=== PATIENT | male | born 1970 | race Caucasian/White ===

== ENCOUNTER 2017-07-16 15:58 | Emergency (ER) | payer BC, OTHER ==
[2017-07-16 17:13] VITALS: BP 134/91
--- NOTE | 2017-07-16 17:37 | UC ---
Knee Pain HPI - HPI Summary HPI Summary: PLANTED RIGHT FOOT AND THEN TWISTED RIGHT KNEE. RIGHT KNEE ALSO STRUCK STEEL POLE ON THE WAY DOWN. PT HAS PAIN WITH BENDING AND WEIGHT BEARING. - History of Current Complaint Chief Complaint: UCLowerExtremity Stated Complaint: RIGHT KNEE INJURY Time Seen by Provider: 07/16/17 17:23 Hx Obtained From: Patient Onset/Duration: Sudden Onset, Lasting Hours, Still Present Severity Initially: Moderate Severity Currently: Moderate Pain Intensity: 7 Pain Scale Used: 0-10 Numeric Character: Sharp Aggravating Factor(s): Movement, Weight Bearing Alleviating Factor(s): Rest Associated Signs And Symptoms: Positive: Swelling, Bruising Able to Bear Weight: Yes - Allergies/Home Medications Allergies/Adverse Reactions: Allergies Allergy/AdvReac Type Severity Reaction Status Date / Time Amoxicillin Allergy Swelling Verified 07/16/17 17:12 Of Face,Lips,& Throat PMH/Surg Hx/FS Hx/Imm Hx Previously Healthy: Yes Other History Of: Negative For: HIV, Hepatitis B, Hepatitis C, Anticoagulant Therapy - Surgical History Surgical History: Yes Surgery Procedure, Year, and Place: HERNIA REPAIR - Family History Known Family History: Negative: Cardiac Disease, Hypertension, Diabetes, Respiratory Disease - Social History Alcohol Use: Weekly Substance Use Type: None Smoking Status (MU): Never Smoked Tobacco Review of Systems Constitutional: Negative Skin: Bruising Respiratory: Negative Cardiovascular: Negative Gastrointestinal: Negative Musculoskeletal: Arthralgia, Decreased ROM All Other Systems Reviewed And Are Negative: Yes Physical Exam Triage Information Reviewed: Yes Appearance: Well-Appearing, No Pain Distress, Well-Nourished Vital Signs: Initial Vital Signs Temp 98.1 F 07/16/17 17:09 Pulse 75 07/16/17 17:09 Resp 16 07/16/17 17:09 BP 134/91 07/16/17 17:09 Pulse Ox 95 07/16/17 17:09 Vital Signs Reviewed: Yes Eyes: Positive: Conjunctiva Clear ENT: Positive: Hearing grossly normal Neck: Positive: Supple Respiratory: Positive: No respiratory distress, No accessory muscle use Cardiovascular: Positive: Pulses Normal Abdomen Description: Positive: Soft Musculoskeletal: Positive: ROM Limited @ - RIGHT KNEE, Edema @ - RIGHT KNEE, Other: - RIGHT KNEE: NO JOINT LINE TENDERNESS OR TENDERNESS OVER ANY BONY PROMINENCES. NEG DRAWERS SIGNS. NEG PATELLAR APPREHENSION TEST. NO TENDERNESS OVER PATELLAR LIGAMENT OR QUADRICEPS TENDON. DECREASED ROM (FLEXION). UNABLE TO DO FULL KNEE EXAM DUE TO PT DISCOMFORT Neurological: Positive: Alert Psychological: Positive: Age Appropriate Behavior Skin: Positive: Other - BRUISE DISTAL TO RIGHT KNEE. Negative: rashes Diagnostics - Radiology RIGHT KNEE XRAY Xray Interpretation: Positive (See Comments) - Small joint effusion without additional radiographic finding. Radiology Interpretation Completed By: Radiologist Knee Pain Course/Dx - Differential Dx/Diagnosis Differential Diagnosis/HQI/PQRI: Bursitis, Sprain, Strain Provider Diagnoses: RIGHT KNEE SUSPECTED INTERNAL INJURY Discharge - Discharge Plan Condition: Stable Disposition: HOME Patient Education Materials: Knee Pain (ED) Forms: *Work Release Referrals: Juan A Otero MD [Medical Doctor] - 1 Week Kam Bond DO [Primary Care Provider] - If Needed Additional Instructions: YOU MAY HAVE SPRAINED YOUR KNEE VS DONE SOME INTERNAL DAMAGE. YOUR XRAY SHOWS AN EFFUSION BUT IS OTHERWISE UNREMARKABLE. WEAR THE KNEE IMMOBILIZER FOR COMFORT. AFTER 2-3 DAYS BE SURE TO GO THROUGH SLOW RANGE OF MOTION AND STRETCHING EXERCISES YOU ARE ABLE TO PREVENT STIFFENING UP AND MAKING THE DISCOMFORT WORSE. REST, ICE, ELEVATE. IF YOU DO NOT NOTICE IMPROVEMENT OVER THE NEXT SEVERAL DAYS WOULD FOLLOW-UP WITH YOUR PCP OR ORTHO YOU MAY BENEFIT FROM FURTHER IMAGING. SUSPECTED INTERNAL KNEE INJURY: The examiner of your injured knee suspects an internal injury to the cartilage or internal ligaments. This must be further investigated by an client technologies specialist. The knee should be protected, ice packed, and elevated while awaiting your follow-up exam by the orthopedist. If there is severe swelling, severe pain, or any new symptoms while awaiting your exam, you should call the orthopedist. (If he/she is unavailable, call us or return for re-examination.)
--- NOTE | 2017-07-16 18:00 | RAD ---
Indication: Posterior RIGHT knee pain following twisting fall yesterday. Comparison: None. Technique: RIGHT knee: AP, tunnel, lateral, sunrise views. Report: Small joint effusion. Negative for fracture or malalignment. Preserved joint spaces. Unremarkable soft tissue contours. IMPRESSION: Small joint effusion without additional radiographic finding.
== END 2017-07-16 18:37 | disposition home or self-care (01) ==
LOC: UCCORT 15:58
DX: M25.461 Effusion, right knee (principal); Z88.0 Allergy status to penicillin
CPT/HCPCS: 99213; G0463

== ENCOUNTER → 2018-11-16 09:06 | Day surgery (SDC) | payer OTHER ==
--- NOTE | 2018-10-23 17:26 | HP ---
PREOPERATIVE HISTORY AND PHYSICAL: DATE OF ADMISSION/SURGERY: 11/16/18 [facility] DATE OF OFFICE VISIT: 10/23/18 ATTENDING SURGEON: Craig Barron MD * (DICTATED BY IRAM APODACA) PROCEDURE: Right knee arthroscopy with partial meniscectomy. CHIEF COMPLAINT: Right knee. HISTORY OF PRESENT ILLNESS: Seth is a 48-year-old male who presents to the clinic for right knee pain due to a meniscus tear. He has failed conservative measures and therefore agreed to undergo a right knee arthroscopy with partial meniscectomy with Dr. Barron on 11/16/18. PAST MEDICAL HISTORY: Denies current medical condition. PAST SURGICAL HISTORY: Hernia repair. The patient states that he has had prior complication with local MAC and requires general anesthesia. MEDICATIONS: 1. Advil 200 mg 1 by mouth as needed. 2. Pepcid 1 by mouth as needed. 3. Aleve 220 mg 1 to 2 by month twice a day as needed. ALLERGIES: No known drug allergies. FAMILY HISTORY: Denies pertinent family history. SOCIAL HISTORY: He lives alone. He works in railroad construction. He denies tobacco use. He reports occasional alcohol consumption. He is right-hand dominant . REVIEW OF SYSTEMS: A 14-point review of systems was reviewed with the patient. Positive for current complaint, otherwise negative. Denies fever, chills, chest pain, shortness of breath, history of DVT or PE, history of bleeding disorder. PHYSICAL EXAMINATION GENERAL: A 48-year-old well-developed, well-nourished male, in no acute distress. VITAL SIGNS: Height 71.25, weight 200, pulse 62, blood pressure 110/70, respiratory rate 18, temperature 98.0, BMI 27.8. HEENT: Normocephalic, atraumatic. PERRLA. Throat: Clear. NECK: Supple. PULMONARY: Lungs are clear to auscultation bilaterally. No wheezing, rhonchi, or rales. CARDIO: Regular rate and rhythm. S1, S2. No murmurs, gallops, or rubs. No edema. ABDOMEN: Positive bowel sounds, soft, nontender. NEURO: Alert and oriented x3. Cranial nerves grossly intact. MUSCULOSKELETAL: Right lower extremity, skin is intact. No warmth or erythema. Range of motion 0 to 135. Stable Vicky. +1 posterior drawer. Stable to varus and valgus stress. Tender over the lateral joint line. Pain with deep flexion. Positive Mellisa's. +2 DP pulse. Sensation intact to light touch distally. 5/5 strength to ankle dorsiflexion and plantar flexion. DIAGNOSTIC STUDIES: Multi-view x-rays and MRI of the right knee revealed a complete PCL tear. IMPRESSION: Right knee meniscus tear. PLAN: The patient is scheduled to undergo a right knee arthroscopy with partial meniscectomy with Dr. Barron on 11/16/18. He will follow up in 10 to 14 days postop for followup and suture removal. Percocet will be used for postop pain management. IRAM APODACA [id number]/CPS #: [id number] MTDD
[~2018-11-16 09:06] MED LIST: Buffered Lidocaine 0.9% SYRIN* 5 ML/SYR SYRINGE INTRADERM ONE; Clindamycin 900 MG/D5W BAG(*) 900 MG/50 ML BAG IVPB ONE; Dexamethasone IV* 4 MG/ML 1 ML (4 MG) IV SLOW PU ONE; Dexamethasone IV* 4 MG/ML 1 ML (4 MG) ONE; DiMENhydriNATE IV* 50 MG/ML VIAL IV PUSH PRN; Famotidine IV* 10 MG/ML 2 ML (20 mg) IV ONE; Famotidine IV* 10 MG/ML 2 ML (20 mg) ONE; HYDROmorphone INJ1* 1 MG/ML SYRINGE IV PRN; Ketorolac INJ* 30 MG/ML 1 ML VIAL ONE; Lactated Ringers 1000 ML Bag* 1,000 ML IV SCH; Lidocain 1% EPI 1:100,000 * 30 ML MDV ONE; Lidocaine 2% PF * 5 ML VIAL ONE; Midazolam* 1 MG/ML 5 ML VIAL (5 MG) ONE; Naloxone* 0.4 MG/ML 1 ML VIAL IV PRN; Ondansetron INJ* 2 MG/ML VIAL IV PRN; Ondansetron INJ* 2 MG/ML VIAL ONE; Propofol* 10 MG/ML 20 ML BTL ONE; Ropivacaine* 2 MG/ML 20 ML VIAL (0.2%) ONE; Scopolamine 1.5 mg* PATCH ONE; Scopolamine 1.5 mg* PATCH TRANSDERM SCH; ceFAZolin 2 GM PREMIX in ORs 0 GM/0 ML BAG IVPB ONE; fentaNYL* 50 MCG/ML 2 ML VIAL (100 MCG VIAL) IV PRN; fentaNYL* 50 MCG/ML 2 ML VIAL (100 MCG VIAL) ONE; fentaNYL* 50 MCG/ML 5 ML VIAL (250 MCG VIAL) ONE; oxyCODONE/Acetamin 5/325 MG* TAB ONE; oxyCODONE/Acetamin 5/325 MG* TAB PO PRN
[2018-11-16 12:19] VITALS: BP 130/92
--- NOTE | 2018-11-17 01:37 | OP ---
DATE OF OPERATION: 11/16/18 - [facility] DATE OF : 66 SURGEON: Craig Barron MD PROFESSIONAL SERVICES SPECIALIST: None available. ANESTHESIOLOGIST: Dr. Diaz. ANESTHESIA: General. PRE-OP DIAGNOSES: Right knee PCL grade 1 injury as well as lateral meniscus tear. 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 OPERATIVE PROCEDURE: Right knee arthroscopy with partial medial and partial lateral meniscectomy, chondroplasty of the medial femoral condyle in the lateral plateau. COMPLICATIONS: None. ESTIMATED BLOOD LOSS: Minimal. INDICATIONS: Seth Bray is a 48-year-old male, who sustained work related injury over a year ago. He was diagnosed with a PCL injury. He described a laterally-based pain. He had an MRI that demonstrated lateral meniscal tearing. He has had persistent symptoms, has failed conservative measures, and elected to proceed with surgical treatment. Risks and benefits of the surgery were discussed at length and included, but not limited to bleeding; infection; damage to nerves, vessels, surrounding structures; wound nonhealing; persistent pain; need for further surgery; scarring; stiffness; incomplete relief of symptoms; risks of anesthesia, risk of arthritis. The patient had a known PCL injury, which can lead itself to medial and patellofemoral compartment arthritis. DESCRIPTION OF PROCEDURE: The patient was greeted in the preoperative area by the attending surgeon. Correct extremity was marked and consent was confirmed. The patient was then brought back to the operating suite where he was placed in supine position on the operating table. The patient underwent general anesthesia and LMA intubation, after which he was appropriately positioned on the bed. Unsterile tourniquet was placed high on the proximal thigh as well as lateral post. The leg was then prepped and draped in the usual sterile fashion , beginning with chlorhexidine soap scrub and alcohol wipe and a final prep with ChloraPrep. After appropriate surgical pause indicating side, site, procedure, and administration of antibiotics, the knee was intra-articularly injected with 1% lidocaine with epi after which the anterolateral portal was then accessed using a 11-blade. The scope was positioned in the joint. The joint was examined. The ACL and PCL were intact. There was abundant synovitis anteromedially and laterally. This was debrided back after the anterior and medial portals were made in an outside-in fashion. After this was complete, electrocautery was used to maintain hemostasis. Medial compartment was examined. There was evidence of an unstable flap about the medial femoral condyle of cartilage, otherwise grade 0 to 1 changes, but about the weightbearing surface of the medial femoral condyle there is unstable flap grade 2 changes. Once the chondroplasty was completed, attention was directed to the medial meniscus where there was obvious unstable fraying anteriorly and posteriorly. The shaver and biter were used to debride this back. The knee was then placed in full extension. The patellofemoral joint was examined. There were grade 0 to 1 changes of the patellofemoral joint. Medial and lateral gutters were intact without any loose debris. The scope was positioned in figure-of-4 position and the lateral compartment was examined. There was tearing through the meniscus as well as the body. This was then debrided back using biters and albert. Remainder of the meniscus was probed and found to be intact. There were grade 2 changes in the lateral plateau. The lateral femoral condyle had grade 0 changes. The lateral plateau underwent a small chondroplasty. The wounds were then copiously irrigated and the knee was thoroughly lavaged. The wounds were copiously irrigated with sterile saline. The portals were closed with 0 nylon. Sterile dressings were applied as well as Cryo/Cuff . He was then awoken from anesthesia and transitioned to PACU in stable condition. POSTOPERATIVE PLAN: He will be weightbearing as tolerated with crutches for 3 to 5 days. Range of motion as tolerated. Discharged on pain medication. He will follow up in the office in 10 to 14 days postop. DVT prophylaxis was considered but deferred due to no previous personal or family history. I will see the patient back in 10 to 14 days. [id number]/[facility] #: [id number] RALPH
== END | disposition home or self-care (01) ==
LOC: OR 09:06
PROVIDERS: ATTEND Orthopaedic Surgery
DX: S83.241A Other tear of medial meniscus, current injury, right knee, initial encounter (principal); S83.281A Other tear of lateral meniscus, current injury, right knee, initial encounter; M93.861 Other specified osteochondropathies, right lower leg; X58.XXXA Exposure to other specified factors, initial encounter; Y92.89 Other specified places as the place of occurrence of the external cause; Y99.0 Civilian activity done for income or pay
CPT/HCPCS: A9270-GY; J0690; J1100; J1885; J2250; J2405; J2704; J2795; J3010

== ENCOUNTER 2019-11-15 08:47 | Day surgery (SDC) | payer OTHER ==
[~2019-11-15 08:47] MED LIST changes: -Buffered Lidocaine 0.9% SYRIN* 5 ML/SYR SYRINGE INTRADERM ONE; +Buffered Lidocaine 1% SYRIN* 1 ML/SYRINGE INTRADERM ONE; -Clindamycin 900 MG/D5W BAG(*) 900 MG/50 ML BAG IVPB ONE; -Dexamethasone IV* 4 MG/ML 1 ML (4 MG) IV SLOW PU ONE; -Dexamethasone IV* 4 MG/ML 1 ML (4 MG) ONE; -DiMENhydriNATE IV* 50 MG/ML VIAL IV PUSH PRN; -Famotidine IV* 10 MG/ML 2 ML (20 mg) IV ONE; -Famotidine IV* 10 MG/ML 2 ML (20 mg) ONE; -HYDROmorphone INJ1* 1 MG/ML SYRINGE IV PRN; -Ketorolac INJ* 30 MG/ML 1 ML VIAL ONE; -Lidocain 1% EPI 1:100,000 * 30 ML MDV ONE; -Lidocaine 2% PF * 5 ML VIAL ONE; -Midazolam* 1 MG/ML 5 ML VIAL (5 MG) ONE; -Naloxone* 0.4 MG/ML 1 ML VIAL IV PRN; -Ondansetron INJ* 2 MG/ML VIAL IV PRN; -Ondansetron INJ* 2 MG/ML VIAL ONE; -Propofol* 10 MG/ML 20 ML BTL ONE; -Ropivacaine* 2 MG/ML 20 ML VIAL (0.2%) ONE; -Scopolamine 1.5 mg* PATCH ONE; -Scopolamine 1.5 mg* PATCH TRANSDERM SCH; -ceFAZolin 2 GM PREMIX in ORs 0 GM/0 ML BAG IVPB ONE; -fentaNYL* 50 MCG/ML 2 ML VIAL (100 MCG VIAL) IV PRN; -fentaNYL* 50 MCG/ML 2 ML VIAL (100 MCG VIAL) ONE; -fentaNYL* 50 MCG/ML 5 ML VIAL (250 MCG VIAL) ONE; -oxyCODONE/Acetamin 5/325 MG* TAB ONE; -oxyCODONE/Acetamin 5/325 MG* TAB PO PRN
[2019-11-15] MEDS ORDERED: ceFAZolin 2 GM PREMIX in ORs 2 GM/50 ML BAG ONE (08:58)
[2019-11-15] MEDS ORDERED: Ropivacaine 0.2% * 2 MG/ML VIAL ONE (09:50)
[2019-11-15] MEDS ORDERED: Lidocaine 1% w EPI 1:200,000* SDV 30 ML VIAL ONE (09:50)
[2019-11-15] MEDS ORDERED: Ketorolac INJ* 30 MG/ML 1 ML VIAL ONE (10:02)
[2019-11-15] MEDS ORDERED: Ondansetron INJ* 2 MG/ML VIAL ONE (10:02)
[2019-11-15] MEDS ORDERED: Propofol* 10 MG/ML 20 ML BTL ONE (10:02)
[2019-11-15] MEDS ORDERED: Midazolam* 1 MG/ML 5 ML VIAL (5 MG) ONE (10:02)
[2019-11-15] MEDS ORDERED: fentaNYL* 50 MCG/ML 2 ML VIAL (100 MCG VIAL) ONE (10:02)
[2019-11-15] MEDS ORDERED: Dexamethasone IV* 4 MG/ML 1 ML (4 MG) ONE (10:02)
[2019-11-15] MEDS ORDERED: Lidocaine 2% PF * 5 ML VIAL ONE (10:15)
[2019-11-15] MEDS ORDERED: Ondansetron INJ* 2 MG/ML VIAL IV PRN (10:57)
[2019-11-15] MEDS ORDERED: oxyCODONE/Acetamin 5/325 MG* TAB PO PRN (10:57)
[2019-11-15] MEDS ORDERED: HYDROmorphone INJ1* 1 MG/ML SYRINGE IV PRN (10:57)
[2019-11-15] MEDS ORDERED: fentaNYL* 50 MCG/ML 2 ML VIAL (100 MCG VIAL) IV PRN (10:57)
[2019-11-15] MEDS ORDERED: Naloxone* 0.4 MG/ML 1 ML VIAL IV PRN (10:57)
[2019-11-15 12:42] VITALS: BP 130/78
--- NOTE | 2019-11-17 21:45 | OP ---
DATE OF OPERATION: 11/15/19 - [facility] DATE OF : 66 ATTENDING SURGEON: Craig Barron MD CRYOGENICS ENGINEER: None available. ANESTHESIOLOGIST: Dr. Diaz. PRE-OP DIAGNOSIS: Right knee known partial posterior cruciate ligament tear and ankylosis or stiffness. POST-OP DIAGNOSIS: Right knee known partial posterior cruciate ligament tear and ankylosis or stiffness. OPERATIVE PROCEDURE: 1. Right knee arthroscopy with lysis of adhesions, manipulation under anesthesia. 2. Chondroplasty of the medial femoral condyle. COMPLICATIONS: None. ESTIMATED BLOOD LOSS: Minimal. INDICATIONS: Seth Bray is a 49-year-old male who had a previous work- related injury and had a partial PCL injury. He also had a subsequent meniscus tear, this was taken care of previously. He had scar tissue that was prepatellar and underneath the previous incision that we could not get rid of in spite of physical therapy, antiinflammatories, an injection and Medrol- Dosepak. He persistently had pain and a catch that was audible. He failed conservative management and elected to proceed with surgical treatment. He underwent Workers' Comp approval. DESCRIPTION OF PROCEDURE: The patient was greeted in the preoperative area by the attending surgeon. Correct extremity was marked and consent was confirmed. The patient was brought back to the operating suite and was placed in the supine position on the operating table. He then underwent general anesthesia and LMA intubation. An unsterile tourniquet was placed high on the proximal thigh. A lateral post was positioned. The right leg was prepped and draped in the usual sterile fashion with chlorhexidine soap, scrub and alcohol wipe and final prep of ChloraPrep. After appropriate surgical pause indicating side, site and procedure, administration of antibiotics, the knee was intra-articularly injected with 1% lidocaine with epi. The anterolateral portal was then made sharply with an 11 blade. Scope was introduced into the joint and joint was joined. There was abundant thick scar tissue that was present about the prepatellar area and the previous incisions. The anteromedial portal was made in an outside-in fashion. The shaver as well as electrocautery device were used to break up the abundant scar that was evident about the medial femoral condyle of grade 2 changes in the weight-bearing zone. It appeared to be about 1 cm width and 2 cm in longitudinal area. The medial meniscus had no unstable frying as evidenced in previous partial meniscectomy. ACL and PCL were intact. The lateral compartment was examined and there were grade 0 and 1 changes. The lateral meniscus had evidence of partial meniscectomy as well. The patellofemoral joint had grade 0 changes. No obvious chondrosis. Shaver was used to do a small chondroplasty. The remainder of the synovitis was then removed with electrocautery device. This allowed for knee cap mobilized. The knee was then checked with range of motion and there was no more palpable or audible clunk. The soft tissues were soft and supple. Final images were obtained. The wounds were copiously irrigated with sterile saline. The Portals were closed with 3-0 nylon in interrupted fashion. Sterile dressings were applied and a Cryo/Cuff. He was awoken from anesthesia and transferred to the PACU in stable condition. POSTOPERATIVE PLAN: He will be weightbearing as tolerated. Range of motion as tolerated. Discharge on pain medication, antibiotics due to revision surgery. DVT prophylaxis was considered, but deferred due to no previous personal or family history. I will see the patient back in 10 to 14 days. [id number]/[facility] #: [id number] [facility]IL HOSPITALJoellen
== END 2019-11-15 12:15 | disposition home or self-care (01) ==
LOC: OREAST 08:47
PROVIDERS: ATTEND Orthopaedic Surgery
DX: M24.661 Ankylosis, right knee (principal); M65.861 Other synovitis and tenosynovitis, right lower leg; Z88.1 Allergy status to other antibiotic agents; E78.00 Pure hypercholesterolemia, unspecified; E78.5 Hyperlipidemia, unspecified
CPT/HCPCS: J0690; J1100; J1885; J2001; J2250; J2405; J2704; J2795; J3010